=== PATIENT | female | born 1985 | race Hispanic/Latino ===

== ENCOUNTER 2017-11-04 09:40 | Outpatient (CLI) | payer OTHER | END 2017-11-04 09:41 | disposition home or self-care (01) | LOC: BICMAMMO 09:40 | PROVIDERS: ATTEND Family Medicine | DX: N64.4 Mastodynia (principal) | CPT/HCPCS: 77066; G0279 ==

== ENCOUNTER 2018-06-29 15:59 | Outpatient (CLI) | payer OTHER | END 2018-06-29 16:00 | disposition home or self-care (01) | LOC: DTY/OP 15:59 | PROVIDERS: ATTEND Family Medicine | DX: K90.0 Celiac disease (principal); R10.9 Unspecified abdominal pain; R53.83 Other fatigue | CPT/HCPCS: 97802 ==

== ENCOUNTER 2019-05-22 07:28 | Outpatient (CLI) | payer OTHER ==
--- NOTE | 2019-05-22 08:59 | MRI ---
MRI LEFT KNEE WITHOUT CONTRAST: HISTORY: S86.241X. COMPARISON: None. FINDINGS: MEDIAL MENISCUS: Intact. LATERAL MENISCUS: Intact. ACL, PCL, LCL, and MCL: All intact. EXTENSOR MECHANISM: The quadriceps tendon, patella, and patella tendon are intact. CARTILAGE: Patellofemoral compartment: 50% cartilage fissures, lateral patella facet, without subcoracoid react jabari marrow edema. Medial compartment: Intact. Lateral compartment: Intact. SOFT TISSUES: There is subtle edema of the lateral pre-femoral fat pad. There is a small popliteal cyst. There is a large multiseptated ganglion pseudocyst at the medial head gastrocnemius origin, fr om the posterior femur, measuring 2.7 cm in transverse x 2.5 cm in AP dimension x craniocaudal length of approximately 3 cm. MUSCLES: Muscle signal and bulk are normal. IMPRESSION: 1. No acute internal derangement of the knee. 2. Large ganglion pseudocyst at the origin of the medial head gastrocnemius, from the posterior femo ral metadiaphysis. 3. Trace popliteal cyst, which has collapsed. 4. Grade II chondromalacia lateral patellar facet. 5. Low grade lateral pre-femoral fat pad edema, suggesting impingement. 6. The ganglion pseudocyst of the medial head gastrocnemius can be a source of the patient's symptom atology. POS: CET
== END 2019-05-22 07:29 | disposition home or self-care (01) ==
LOC: BICMRI 07:28
PROVIDERS: ATTEND Family Medicine
DX: S86.912D Strain of unspecified muscle(s) and tendon(s) at lower leg level, left leg, subsequent encounter (principal); M67.452 Ganglion, left hip; M22.42 Chondromalacia patellae, left knee

== ENCOUNTER 2019-09-21 17:53 | Emergency (ER) | payer OTHER ==
[2019-09-21 18:33] LABS: #Eosinphils 0.1 thou/uL (0.0-0.7); #Lymphocytes 1.1 thou/uL (1.20-3.40); #Monocytes 0.9 thou/uL (0.11-0.59); #Neutrophils 6.6 thou/uL (1.40-6.50); %Basophils 0.4 % (0.0-1.0); %Eosinophils 0.7 % (0.0-10.0); %Lymphocytes 12.7 % (21.0-51.0); %Monocytes 10.7 % (0.0-10.0); %Neutrophils 75.6 % (42.0-75.0); Hemoglobin 12.4 g/dL (12.0-16.0); Mean Corpuscular HGB CONC 35.2 g/dL (32.0-36.0); Mean Corpuscular Volume 90.8 fL (78.0-98.0); Mean Platelet Volume 7.3 fL (7.4-10.4); Platelet Count 274 thou/uL (130-400); RBC Distribution Width 11.7 % (11.5-14.5); Red Blood Cell (RBC) Count 3.88 mill/uL (4.20-5.40); White Blood Cell (WBC) Count 8.7 thou/uL (4.8-10.8)
[2019-09-21 18:49] LABS: ALT (SGPT) 16 U/L (8-55); AST (SGOT) 16 U/L (5-34); Albumin 3.6 g/dL (3.5-5.0); Alkaline Phosphatase 67 U/L (40-110); Anion Gap 10 mmol/L (10-20); BUN (Urea Nitrogen) 7 mg/dL (7.0-18.7); Bilirubin, Total 0.2 mg/dL (0.2-1.2); Calc. Creatinine Clearance 0 mL/min (70-130); Carbon Dioxide 25 mmol/L (22-29); Chloride 103 mmol/L (98-107); Estimated GFR-MDRD Greater than 90; Globulin 2.8 g/dL (2.4-3.5); Glucose 90 mg/dL (70-105); Lipase 23 U/L (8-78); Potassium 3.5 mmol/L (3.5-5.1); Protein, Total 6.4 g/dL (6.0-8.3); Sodium 134 mmol/L (136-145)
--- NOTE | 2019-09-21 18:49 | ULT ---
Limited Obstetrical Ultrasound INDICATION: Abdominal and pelvic pain TECHNIQUE: Grayscale, M-mode Doppler, color Doppler and spectral Doppler images were obtained. Estrella jacinto is focused on the clinical indication. COMPARISON: No relevant prior studies available. FINDINGS: GESTATION: Number of gestations: Single. Presentation: Breech. heart rate: 157 bpm. Placental location: Posterior Previa: No evidence for previa. Cervical length: 3.6 cm STANISLAV: 8.9 cm. LIMITED SURVEY: No abnormality as visualized. BIOMETRY: Biparietal diameter: 4.83cm, 20 weeks and 6 days, 3rd percentile. Head circumference: 19.69 cm, 21 weeks 6 days, 13th percentile Abdominal circumference: 17.17 cm, 22 weeks and 1 day, 28 percentile Femoral length: 3.91cm, 22 weeks and 4 days, 39 percentile Estimated weight: 486 g +/- 72g 1 lb. 1 oz. +/- 3 ounces, 27th percentile The average gestational age by ultrasound is 21 weeks and 6 dayswith estimated due date of January 26, 2020. The estimated dates by clinical data is 22 weeks and 4 dayswith estimated due date of January 21, 2020. IMPRESSION: 1. Single live intrauterine gestation with size and dates as above. 2. STANISLAV is at 5th percentile for gestational age. Close clinical and sonographic follow-up is recommen ded.
[2019-09-21] MEDS ORDERED: Acetaminophen 325 MG TAB ONE ×2 (19:03→22:53)
[2019-09-21 19:23] LABS: Bilirubin Negative (Negative); Blood, Urine Negative (Negative); Clarity Clear (Clear); Glucose, Urine (Dipstick) Normal (Negative); Leukocyte Negative Leu/uL (Negative); Nitrite Negative (Negative); Protein, Urine (Dipstick) Negative (Neg-Trace); Urobilinogen Normal mg/dL (Less than 2)
[2019-09-21 22:14] LABS: Amnisure Internal Control QC ACCEPTABLE (ACCEPTABLE); Amnisure Test No Membranes Rupture (No Rupture)
[2019-09-24 19:08] LABS: Chlamydia by PCR Not Detected (NotDetected); GC by PCR Not Detected (NotDetected)
== END 2019-09-21 23:46 | disposition home or self-care (01) ==
LOC: ERS 17:53
DX: O99.512 Diseases of the respiratory system complicating pregnancy, second trimester (principal); J10.1 Influenza due to other identified influenza virus with other respiratory manifestations; O99.342 Other mental disorders complicating pregnancy, second trimester; F32.9 Major depressive disorder, single episode, unspecified; O99.332 Smoking (tobacco) complicating pregnancy, second trimester; F17.200 Nicotine dependence, unspecified, uncomplicated; Z3A.22 22 weeks gestation of pregnancy
CPT/HCPCS: 36415; 76815; 80053; 81003; 83690; 84112; 85025; 87480; 87491; 87510; 87591; 87660; 87804

== ENCOUNTER 2020-01-10 19:15 | Inpatient (IN) | payer OTHER ==
[2020-01-14 18:17] VITALS: BMI 34.7
[2020-01-14] MEDS ORDERED: NS / Oxytocin 40 units/1000ml 1,000 ML IV PRN (18:37)
[2020-01-14] MEDS ORDERED: Lidocaine 1% (PF) 30 ML VIAL SC PRN (18:37)
[2020-01-14] MEDS ORDERED: Acetaminophen 500 MG TAB PO PRN (18:37)
[2020-01-14] MEDS ORDERED: Promethazine HCl 25 MG/ML VIAL IM PRN ×2 (18:37→22:34)
[2020-01-14] MEDS ORDERED: Ondansetron PF 4 MG/2 ML Vial IVP PRN ×2 (18:37→22:34)
[2020-01-14] MEDS ORDERED: hydrALAZINE 20 MG/ML VIAL SLOW IVP PRN (18:37)
--- NOTE | 2020-01-14 18:37 | PDOC.FPROB ---
FMR OB H&P: HPI - History of Present Illness Chief Complaint: IOL Indentification: History of Present Illness: Pt is a 34 yo @ 39 weeks dated on LMP c/w 13.1 week sono who presents to for eIOL. This is complicated by A2GDM controlled with basal insulin and meal time insulin. She does not know dosage at this time but has records at home. She denies chest pain, sob, vision changes, FERRER, RUQ pain, contractions, LE edema, vaginal bleeding, ROM, abdominal pain. She has no complaints. SHARIF - Chris/Neye FMR OB H&P: Current - Care : 4 Para: 210 Gestational age: 39 weeks Due date: 01/21/20 Dating Criteria: LMP c/w 13.1 week sono Course/Complications: A2GDM controlled with insulin - OB Labs Blood type: AB RH: positive Antibody Screen: negative HIV: negative RPR: negative HepBsAg: negative Rubella: immune Gonorrhea: negative Chlamydia: negative GBS: negative FMR OB H&P: History - Past Medical History PMH: A2GDM Celiac Disease Anxiety/Depression - OB History OB History: A2GDM - ACTIVITY SPECIALIST History ACTIVITY SPECIALIST History: Neg GCCH - Surgical History Sx History: None - Social History Social History: Denies tobacco, alcohol, drug use - Family History Family History: Non-contributory FMR OB H&P: Medications - Current Home Medications: Medication Instructions Recorded Confirmed Type Vit,Calc76/Iron/Folic 1 tablet PO DAILY 01/14/20 01/14/20 History [Prenatabs Rx Tablet] Allergies/Adverse Reactions: Allergies Allergy/AdvReac Type Severity Reaction Status Date / Time almond Allergy Verified 01/14/20 18:13 amoxicillin Allergy Verified 01/14/20 18:09 clarithromycin Allergy Verified 01/14/20 18:10 corn Allergy Verified 01/14/20 18:13 levofloxacin Allergy Verified 01/14/20 18:10 peanut Allergy Verified 01/14/20 18:13 pecan nut Allergy Verified 01/14/20 18:13 pistachio nut Allergy Verified 01/14/20 18:13 soy Allergy Verified 01/14/20 18:14 FMR OB H&P: ROS - Review of Systems General: denies: fever/chills, weight/appetite/sleep changes Eyes: denies: eye pain, vision changes, scotomas, floaters ENT: denies: nasal congestion, rhinorrhea, sore throat Cardiovascular: denies: chest pain, palpitation, edema Respiratory: denies: cough, congestion Gastrointestinal: denies: abdominal pain, indigestion, bloating, nausea, vomiting, diarrhea, constipation Genitourinary (Female): denies: incontinence, dysuria Musculoskeletal: denies: pain, stiffness Neurologic: denies: numbness, syncope, weakness Integumentary: denies: itching, rash Endocrine: denies: cold intolerance, heat intolerance Hematologic/Lymphatic: denies: prolonged or excessive bleeding Psychological: denies: depression, anxiety FMR OB H&P: Vital Signs - Heart Tones Baseline: 150 Variability: moderate Acceleration: present Deceleration: absent [place] contractions every: No contractions on monitor FMR OB H&P: Physical Exam - Physical Exam General: NAD, awake, alert and oriented HEENT: PERRLA, EOMI Neck: FROM, trachea midline, no JVD Heart: RRR, normal S1/S2, no murmurs/rubs/gallops, no edema General: CTAB, no respiratory distress, good air movement, no wheezing Abdomen: soft, gravid, non-tender, bowel sound present Musculoskeletal: normal gait and station, FROM in all four extremities Neurological: cranial nerves II through XII intact, sensation to pain,touch and proprioception grossly normal Skin: no rash, capillary refill <2 seconds, no jaundice Lymphatic: no purpura, no petechia Psychiatric: intact recent and remote memory, good judgement and insight - Pelvic Exam Vulva: no masses, no lesions, no discharge SVE: 2 cm/30%/-1 Olivia score: 7, anterior, soft Membranes: Intact Presentation: Cephalic FMR OB H&P: A/P - Problem List (1) Elective induction of labor planned Current Visit: Yes Status: Acute Code(s): [id number] - (2) GDM, class A2 Current Visit: Yes Status: Acute Code(s): O24.419 - GESTATIONAL DIABETES MELLITUS IN , UNSP CONTROL Disposition: Pt is a 34 yo at 39 weeks dated by LMP c/w 13.1 week u/s who presents for eIOL. # Elective IOL Olivia 7 SVE: 2 cm, 30%, -1, anterior, soft; Cephalic position FHT's: 150, moderate variability, accels present, no decels - start pit - recheck at midnight on first check - check strip q2hrs # A2GDM Home medications: Humalog 6 U am, 4 U evening; Humulin 23 U am, 6 U evening. Home ranges from 58-158 w/ median low 100's. She feels lightheaded when high and low. BG 95 initial. - q1h checks - maintain BG between 70-110 - SSI initiated, contact physician above 140 and will need to consider insulin pump # GBS Negative TAMP - Chris/Kenny Discussion: Date/Time: 01/14/201836 This H&P was discussed with Dr. Bojorquez and Dr. Moe who agree with the above documentation and plan. Addendum - Attending - Attending Attestation Date/Time: 01/14/202029 I personally evaluated the patient and discussed the management with Dr. Dougherty I agree with the History, Examination, Assessment and Plan documented above with any addition or exceptions noted below. 34 yo at 39.0 wk. IOL for GDM A2 well controlled. initial glucose 90-> 70 without insulin. will give PO juice. q1hr accuchecks with SSI. Will switch to insulin ggt if necessary. pitocin for IOL since olivia score 7 with modified olivia of 10. reassess in 4 hr. GBS negative.
[2020-01-14] MEDS ORDERED: NS w/ Oxytocin 10 units 500 ML IV SCH (18:45)
[2020-01-14 18:49] LABS: Hemoglobin 12.3 g/dL (12.0-16.0); Mean Corpuscular HGB CONC 34.3 g/dL (32.0-36.0); Mean Corpuscular Volume 84.4 fL (78.0-98.0); Mean Platelet Volume 7.7 fL (7.4-10.4); Platelet Count 344 thou/uL (130-400); RBC Distribution Width 12.2 % (11.5-14.5); Red Blood Cell (RBC) Count 4.25 mill/uL (4.20-5.40); White Blood Cell (WBC) Count 9.6 thou/uL (4.8-10.8)
[2020-01-14 19:03] LABS: ALT (SGPT) 16 U/L (8-55); AST (SGOT) 21 U/L (5-34); Albumin 3.5 g/dL (3.5-5.0); Alkaline Phosphatase 318 U/L (40-110); Anion Gap 14 mmol/L (10-20); BUN (Urea Nitrogen) 15 mg/dL (7.0-18.7); Bilirubin, Total 0.4 mg/dL (0.2-1.2); Calc. Creatinine Clearance 103 mL/min (70-130); Calcium 9.1 mg/dL (7.8-10.44); Carbon Dioxide 20 mmol/L (22-29); Chloride 105 mmol/L (98-107); Estimated GFR-MDRD 65; Globulin 3.3 g/dL (2.4-3.5); Glucose 95 mg/dL (70-105); Potassium 4.1 mmol/L (3.5-5.1); Protein, Total 6.8 g/dL (6.0-8.3); Sodium 135 mmol/L (136-145)
[2020-01-14] MEDS: Lactated Ringer's 1,000 ML IV SCH ×2 (19:05→21:27)
[2020-01-14 19:21] LABS: Syphilis Antibody Nonreactive (Nonreactive); Syphilis Antibody Index 0.03 S/CO (<1.00 Non-Reactive)
[2020-01-14 19:22] LABS: Hep B Surf Ag Non-Reactive S/CO (NonReactive)
[2020-01-14] MEDS ORDERED: Dextrose 50% Abboject 50 ML SYRINGE SLOW IVP PRN (19:43)
[2020-01-14] MEDS ORDERED: Dextrose 5% in Water 1,000 ML IV PRN (19:43)
[2020-01-14] MEDS ORDERED: HumaLOG 300 UNITS/3 ML VIAL SC PRN (19:43)
--- NOTE | 2020-01-14 21:09 | PDOC.LDPN ---
Labor & Delivery Progress Note - Subjective Subjective: comfortable, no concerns - Objective Vital signs reviewed and normal: yes General: NAD, resting FHT: category 2, late decelerations - Assessment (1) Elective induction of labor planned Code(s): [id number] - Current Visit: Yes Status: Acute (2) GDM, class A2 Code(s): O24.419 - GESTATIONAL DIABETES MELLITUS IN , UNSP CONTROL Current Visit: Yes Status: Acute Plan: other -: Pt is a 34 yo at 39 weeks dated by LMP c/w 13.1 week u/s who presents for eIOL. # Elective IOL Late decels. Will watch for continued late decels. Discussed with pt possible need for . 2/2 uteroplacental insufficiency. Concerning bc pt is not feeling contractions and baby is already compromised. Little response to fluid, position changes. BG wnl. # A2GDM Continue q1h checks # GBS Negative TAMP - Perez/Klocke
[2020-01-14] MEDS ORDERED: Ondansetron PF 4 MG/2 ML Vial ONE (22:17)
[2020-01-14] MEDS ORDERED: EPHEDRINE 25 MG/5 ML SYRINGE ONE (22:17)
[2020-01-14] MEDS ORDERED: MORPHINE 5 MG/10 ML PF VIAL ONE (22:17)
[2020-01-14] MEDS ORDERED: Oxytocin 10 UNITS/ML VIAL ONE (22:17)
--- NOTE | 2020-01-14 22:26 | PDOC.EVN ---
Event Note - Event Note Event Note: Infant having recurrent lates with contractions without any inductive measures. R/B/A of primary LTCS discussed with the patient and her . All questions answered. plan to proceed with primary LTCS.
[2020-01-14] MEDS ORDERED: CEFAZOLIN 2 GM in Premix Bag 1 BAG IVPB SCH (22:30)
[2020-01-14] MEDS ORDERED: Bicitra 30 ML UDCUP PO SCH (22:30)
[2020-01-14] MEDS ORDERED: Promethazine HCl 25 MG SUPP PR PRN (22:34)
[2020-01-14] MEDS ORDERED: L&D-Morphine 4 MG/ML VIAL SLOW IVP PRN (22:34)
[2020-01-14] MEDS ORDERED: Naloxone HCl 0.4 mg/ml Vial IVP PRN ×2 (22:34)
[2020-01-14] MEDS ORDERED: Ondansetron HCl/PF 4 MG/2 ML Vial IVP PRN (22:34)
[2020-01-14] MEDS ORDERED: HYDROmorphone 2 MG/ML VIAL SLOW IVP PRN (22:34)
[2020-01-14] MEDS ORDERED: Naloxone HCl 0.4 mg/ml Vial IV PRN (22:34)
[2020-01-14] MEDS ORDERED: diphenhydrAMINE 50 MG/ML VIAL IVP PRN (22:34)
[2020-01-14] MEDS ORDERED: Meperidine HCl/PF 25 MG/ML VIAL SLOW IVP PRN (22:34)
[2020-01-14] MEDS ORDERED: Ketorolac Tromethamine 30 MG/ML VIAL IVP PRN (22:34)
[2020-01-14] MEDS ORDERED: Communication Order-Pharmacy FS SCH (22:45)
[2020-01-14] MEDS ORDERED: Ketorolac Tromethamine 30 MG/ML VIAL IVP SCH (22:45)
[2020-01-14] MEDS ORDERED: Fentanyl 100 MCG/2 ML VIAL ONE ×2 (23:11→23:55)
[2020-01-14] MEDS ORDERED: PHENYLEPHRINE-NS 100 MCG/ML 10 ML SYRINGE ONE (23:15)
[2020-01-14 23:16] LABS: Actual Bicarbonate (HCO3a) 22.9 mEq/L (22-28); Base Excess (BEa) -3.4 mEq/L (-2.0 to +3.0)
[2020-01-14] MEDS ORDERED: Ketorolac Tromethamine 30 MG/ML VIAL ONE (23:27)
[2020-01-14] MEDS ORDERED: Midazolam HCl 2 mg/2 ml Vial ONE (23:33)
[2020-01-15] MEDS ORDERED: Glycopyrrolate 0.2 MG/ML 5 ML SYRINGE ONE (00:01)
[2020-01-15] MEDS: Misoprostol 100 MCG TAB VAG SCH (00:49)
--- NOTE | 2020-01-15 01:41 | OP ---
DATE OF PROCEDURE: 01/14/2020 RESIDENT SURGEON: Shannan Perez MD SPACE AND STORAGE CLERK SURGEON: José Dougherty DO ATTENDING SURGEON: Zev Bojorquez MD PROCEDURE PERFORMED: Primary low-transverse section. PREOPERATIVE DIAGNOSES: 1. Term intrauterine . 2. A2 gestational diabetes, controlled. 3. Obesity. 4. History of delivery. 5. Advanced maternal age. POSTOPERATIVE DIAGNOSES: 1. Term intrauterine , delivered. 2. A2 gestational diabetes, controlled. 3. Obesity. 4. History of delivery. 5. Advanced maternal age. ANESTHESIA: Spinal. INDICATIONS: The patient is a 34-year-old, G4, P2-1-0-3 female at 39 weeks' gestation, who presented for a scheduled induction, medically indicated for A2 gestational diabetes, controlled on insulin. Upon arrival to Labor and Delivery , the patient was noted to have recurrent late decelerations with intermittent minimal variability. She was given a liter of bolus and repositioned, which improved the heart tracing temporarily, but again the patient had several recurrent late decelerations before any labor augmentation was initiated and the decision was made to undergo primary section for nonreassuring heart tones. PROCEDURE IN DETAIL: After risks, benefits, and alternatives were explained to the patient, she gave informed consent. Preoperative antibiotics included cefazolin 2 g IV. The patient was taken to the operating room and spinal anesthesia was initiated. She was placed in the supine position with a left tilt and prepped and draped in usual sterile fashion. A Pfannenstiel incision was made with a scalpel and carried down to the level of the fascia, which was sharply nicked. Fascial cut was extended bilaterally both bluntly and with Yang scissors. Inferior and superior edges of the cut vaginal edges were elevated with Cinthya clamps. The underlying rectus muscles were bluntly dissected free. The recti were divided digitally and retracted manually. The peritoneum was entered bluntly and retracted manually. An Tripp O was then placed for better visualization of the uterus. A bladder blade was placed and a bladder flap was created with Metzenbaum scissors. A low transverse score was made with a scalpel and the uterus was entered in the midline with a scalpel. Clear fluid was seen. The hysterotomy was extended manually. The was noted to be vertex and was easily delivered by fundal pressure. Mouth and nares were bulb suctioned. Cord was clamped and cut and a grossly normal female was handed to waiting nurse. Cord blood and a cord section were obtained and sent for blood typing and blood gas analysis. Placenta was delivered with uterine massage and found to be intact with three-vessel cord and discarded. The uterus was internalized and the endometrium was curetted with a dry lap x3. The bladder blade was replaced and the uterus was closed with a running locking 1-0 Monocryl suture followed by running nonlocking #1 Monocryl imbricating suture. Following this, hemostasis was noted. The abdomen was irrigated with saline and suctioned free of clots. The uterus was internalized and the hysterotomy was again noted to be hemostatic. The peritoneum was closed with a running nonlocking 2-0 Monocryl suture. The fascia was closed with a running nonlocking 0 PDS suture. The subcutaneous tissue was irrigated and there were no free bleeders and it was closed using a running nonlocking 2-0 plain gut suture. The skin was approximated with a 4-0 Monocryl subcuticular stitch and Dermabond. A pressure dressing was then placed. All counts were correct x3. The patient tolerated the procedure well, and was taken to the recovery room in stable condition. ESTIMATED BLOOD LOSS: 500mL COMPLICATIONS: None. SPECIMENS: Cord blood and cord segment sent to lab for blood type and cord gas analysis. FINDINGS: 1. Grossly normal female with Apgars of 9 and 9. 2. Grossly normal placenta with three-vessel cord discarded. DRAINS: [place] to gravity draining clear urine. ATTENDING ADDENDUM: I was present for the entire case and agree with the above documentation. Job ID: [id number] MTDD
[2020-01-15] MEDS ORDERED: Lanolin Ointment 7 GM TUBE TOP PRN (01:54)
[2020-01-15] MEDS ORDERED: Ondansetron PF 4 MG/2 ML Vial IVP PRN (01:54)
[2020-01-15] MEDS ORDERED: hydrALAZINE 20 MG/ML VIAL SLOW IVP PRN (01:54)
[2020-01-15 05:00] LABS: Hemoglobin 11.2 g/dL (12.0-16.0); Mean Corpuscular HGB CONC 34.4 g/dL (32.0-36.0); Mean Corpuscular Hemoglobin 29.3 pg (27.0-31.0); Mean Corpuscular Volume 85.1 fL (78.0-98.0); Mean Platelet Volume 7.3 fL (7.4-10.4); Platelet Count 306 thou/uL (130-400); RBC Distribution Width 12.2 % (11.5-14.5); Red Blood Cell (RBC) Count 3.83 mill/uL (4.20-5.40); White Blood Cell (WBC) Count 13.5 thou/uL (4.8-10.8)
--- NOTE | 2020-01-15 06:59 | PDOC.OBPPN ---
FMR OB PN: Subj - Interval History Hospital Day: 2 Day: 1 Chief Complaint: Pain Indentification: G4 now P3104 who is PP day #1 s/p primary LTCS for NRFHTs. Interval History: Patient has been stable since moving to floor w/ minimal bleeding. FMR OB PN: Obj - Maternal Vital signs: BP: 99/50 HR: 56 RR: 16 Tmax: 98.7F Pox: 98% on RA Wt: 80 kg - Urine output I&O: 01/13/20 01/14/20 01/15/20 06:59 06:59 06:59 Intake Total 851 Output Total 625 Balance 226 - Pain Management Intervention: oral medication FMR OB PN: Exam - Physical Exam General: NAD (firm just below umbilicus), awake, alert and oriented HEENT: normocephalic and atraumatic, conjunctiva clear, grossly normal vision, grossly normal hearing, good dention Neck: supple, FROM Heart: RRR, normal S1/S2, no murmurs/rubs/gallops, no edema General: CTAB, no respiratory distress, good air movement, no rales/rhonchi, no wheezing, no retractions Abdomen: soft, fundus(cm) (firm just below umbilicus), bowel sound present Musculoskeletal: FROM in all four extremities Neurological: cranial nerves II through XII intact, sensation to pain,touch and proprioception grossly normal, no focal deficit Skin: no rash : bandage intact, no erythema, no edema, no drainage, appropriately tender Psychiatric: intact recent and remote memory, good judgement and insight, normal mood and affect - Pelvic Exam : sutures intact, no discharge, no edema, normal lochia FMR OB PN: Data - Labs Lab results: Laboratory Results - last 24 hr 01/14/20 01/14/20 01/14/20 18:35 18:35 18:35 WBC RBC Hgb Hct MCV MCH MCHC RDW Plt Count MPV Bicarbonate Actual ABG Base Excess Cord ABG pH Cord ABG PCO2 ([place]) Sodium Potassium Chloride Carbon Dioxide Anion Gap BUN Creatinine Estimated GFR (MDRD) Glucose POC Glucose Calcium Total Bilirubin AST ALT Alkaline Phosphatase Serum Total Protein Albumin Globulin Albumin/Globulin Ratio Syphilis IgG/IgM Ab Nonreactive Hep Bs Antigen Non-Reactive Blood Type AB POSITIVE Antibody Screen NEGATIVE 01/14/20 01/14/20 01/14/20 18:35 18:35 19:43 WBC 9.6 RBC 4.25 Hgb 12.3 Hct 35.9 L MCV 84.4 MCH 29.0 MCHC 34.3 RDW 12.2 Plt Count 344 MPV 7.7 Bicarbonate Actual ABG Base Excess Cord ABG pH Cord ABG PCO2 ([place]) Sodium 135 L Potassium 4.1 Chloride 105 Carbon Dioxide 20 L Anion Gap 14 BUN 15 Creatinine 0.97 Estimated GFR (MDRD) 65 Glucose 95 POC Glucose 77 Calcium 9.1 Total Bilirubin 0.4 AST 21 ALT 16 Alkaline Phosphatase 318 H Serum Total Protein 6.8 Albumin 3.5 Globulin 3.3 Albumin/Globulin Ratio 1.1 L Syphilis IgG/IgM Ab Hep Bs Antigen Blood Type Antibody Screen 01/14/20 01/14/20 01/15/20 20:56 23:12 00:32 WBC RBC Hgb Hct MCV MCH MCHC RDW Plt Count MPV Bicarbonate Actual 22.9 ABG Base Excess -3.4 L Cord ABG pH 7.320 Cord ABG PCO2 (Clarence) 45.5 Sodium Potassium Chloride Carbon Dioxide Anion Gap BUN Creatinine Estimated GFR (MDRD) Glucose POC Glucose 90 88 Calcium Total Bilirubin AST ALT Alkaline Phosphatase Serum Total Protein Albumin Globulin Albumin/Globulin Ratio Syphilis IgG/IgM Ab Hep Bs Antigen Blood Type Antibody Screen 01/15/20 01/15/20 01/15/20 00:50 04:50 05:02 WBC 13.5 H RBC 3.83 L Hgb 11.2 L Hct 32.6 L MCV 85.1 MCH 29.3 MCHC 34.4 RDW 12.2 Plt Count 306 MPV 7.3 L Bicarbonate Actual ABG Base Excess Cord ABG pH Cord ABG PCO2 ([place]) Sodium Potassium Chloride Carbon Dioxide Anion Gap BUN Creatinine Estimated GFR (MDRD) Glucose POC Glucose 104 Calcium Total Bilirubin AST ALT Alkaline Phosphatase Serum Total Protein Albumin Globulin Albumin/Globulin Ratio Syphilis IgG/IgM Ab Hep Bs Antigen Blood Type AB POSITIVE Antibody Screen FMR OB PN: A/P - Problem List (1) Status post delivery Current Visit: Yes Status: Acute Code(s): Z98.891 - HISTORY OF UTERINE SCAR FROM PREVIOUS SURGERY (2) History of delivery Current Visit: Yes Status: Chronic Code(s): Z87.51 - PERSONAL HISTORY OF PRE -TERM LABOR (3) Advanced maternal age in multigravida Current Visit: Yes Status: Chronic Code(s): O09.529 - SUPERVISION OF ELDERLY MULTIGRAVIDA, UNSPECIFIED TRIMESTER (4) GDM, class A2 Current Visit: Yes Status: Acute Code(s): O24.419 - GESTATIONAL DIABETES MELLITUS IN , UNSP CONTROL Disposition: 34YO who is PP day #1 s/p primary LTCS @ 39 WGA for NRFHTs. # PP day #1 s/p primary LTCS: - VS stable. Tolerating PO. Sharpe still in place so not voiding or ambulating yet. Passing gas. Pain decently controlled. No fever/chills, N/V, chest pain or abdominal pain. Continue routine post-C/S care. - Reports minimal bleeding w/ QBL of 525mL since delivery, cEBL fairly c/w this at ~514mL. # A2GDM - BG ranging from 77-104 since admission. Will d/c accuchecks. Will need testing for DMII at 6 week PP visit. #AMA in multigravida - Patient aware future pregnancies will all be considered high risk. Will discuss preferred contraception method prior to d/c. #h/o delivery in prior # GBS Negative Dispo: Will monitor over the course of the day w/ anticipated d/c in 1-2 days pending patient & infant's clinical course. PCP: SHARIF Perez/Kenny Discussion: Date/Time: 01/15/20 1320 This H&P was discussed with Dr. Rush who agrees with the above documentation and plan. Addendum - Attending - Attending Attestation Date/Time: 01/15/20 4155 I personally evaluated the patient and discussed the management with Dr. Perez I agree with the History, Examination, Assessment and Plan documented above with any addition or exceptions noted below - Patient denies complaints. Pain well controlled. Afebrile VSS. A/P: 1) PPD#1 s/p 1*C/S- continue routine care. Advance diet as tolerated and d/c sharpe. Begin ambulation later today.
[2020-01-15] MEDS ORDERED: Adacel (T-DAP) 0.5 ML SYRINGE IM ONE (09:00)
[2020-01-15] MEDS: Ferrous Sulfate 325 MG TAB PO SCH ×2 (09:12→21:37)
[2020-01-15] MEDS: Docusate Calcium (SURFAK) 240 MG CAP PO SCH ×2 (09:13→21:32)
[2020-01-15] MEDS: HYDROcodone/Acetaminophen 5/325 mg Tablet PO PRN (17:12)
[2020-01-15] MEDS: Ibuprofen 800 MG TAB PO SCH (21:32)
[2020-01-15] MEDS ORDERED: HumaLOG 300 UNITS/3 ML VIAL SC PRN (22:37)
[2020-01-15] MEDS ORDERED: Dextrose 5% in Water 1,000 ML IV PRN (22:37)
[2020-01-15] MEDS ORDERED: Dextrose 50% Abboject 50 ML SYRINGE SLOW IVP PRN (22:37)
[2020-01-16] MEDS: Ibuprofen 800 MG TAB PO SCH ×3 (05:20→21:58)
[2020-01-16] MEDS ORDERED: Ibuprofen 800 MG TAB PO SCH (06:00)
--- NOTE | 2020-01-16 06:51 | PDOC.OBPPN ---
FMR OB PN: Subj - Interval History Hospital Day: 3 Day: 2 Indentification: who is PP day #2 s/p primary LTCS @ 39 WGA. Interval History: Patient doing well but did have some hyperglycemia overnight. FMR OB PN: Obj - Maternal Vital signs: BP: 90/51 HR: 64 RR: 17 Tmax: 97.9F Pox: 98% on RA Wt: 80.7 kg - Urine output I&O: 01/14/20 01/15/20 01/16/20 06:59 06:59 06:59 Intake Total 851 Output Total 625 Balance 226 - Lochia Lochia: minimal - Pain Management Intervention: oral medication FMR OB PN: Exam - Physical Exam General: NAD, awake, alert and oriented HEENT: normocephalic and atraumatic, conjunctiva clear, grossly normal vision, grossly normal hearing Neck: supple, FROM Heart: RRR, normal S1/S2, no murmurs/rubs/gallops, no edema General: CTAB, no respiratory distress, good air movement, no rales/rhonchi, no wheezing, no retractions Abdomen: soft, fundus(cm) (firm just below umbilicus), bowel sound present Musculoskeletal: normal gait and station, FROM in all four extremities Neurological: cranial nerves II through XII intact, sensation to pain,touch and proprioception grossly normal, no tremor Skin: no rash, good tugor : bandage intact, no erythema, no edema, no drainage, appropriately tender Psychiatric: intact recent and remote memory, good judgement and insight, normal mood and affect - Pelvic Exam : sutures intact, no discharge, normal lochia FMR OB PN: Data - Labs Lab results: Laboratory Results - last 24 hr 01/15/20 01/15/20 01/15/20 10:54 18:12 21:39 POC Glucose 89 111 H 210 H 01/15/20 01/16/20 23:10 05:31 POC Glucose 118 H 100 FMR OB PN: A/P - Problem List (1) Status post delivery Current Visit: Yes Status: Acute Code(s): Z98.891 - HISTORY OF UTERINE SCAR FROM PREVIOUS SURGERY (2) History of delivery Current Visit: Yes Status: Chronic Code(s): Z87.51 - PERSONAL HISTORY OF PRE -TERM LABOR (3) Advanced maternal age in multigravida Current Visit: Yes Status: Chronic Code(s): O09.529 - SUPERVISION OF ELDERLY MULTIGRAVIDA, UNSPECIFIED TRIMESTER (4) GDM, class A2 Current Visit: Yes Status: Acute Code(s): O24.419 - GESTATIONAL DIABETES MELLITUS IN , UNSP CONTROL Disposition: 34YO who is PP day #2 s/p primary LTCS @ 39 WGA for NRFHTs. #PP day #2 s/p primary LTCS: - VS remain WNLs. Tolerating PO. Voiding and ambulating yet. Passing gas. Pain decently controlled with PO meds. Continue routine post-C/S care. - Minimal bleeding w/ QBL of 525mL since delivery, cEBL fairly c/w this at ~ 514mL. #A2GDM - BG ranging from 77-210 since admission. Will continue ACHS accuchecks & mild SSI today. Will need testing for DMII at 6 week PP visit. #AMA in multigravida - Patient aware future pregnancies will all be considered high risk. Will discuss preferred contraception method prior to d/c. #h/o delivery in prior #GBS Negative Dispo: Will monitor over the course of the day w/ anticipated d/c in ~1 day pending patient & 's clinical course. PCP: SHARIF Perez/Kenny Discussion: Date/Time: 01/16/20 0649 This H&P was discussed with [] and [] who agree with the above documentation and plan. Addendum - Attending - Attending Attestation Date/Time: 01/16/20 0918 I personally evaluated the patient and discussed the management with Dr. Perez I agree with the History, Examination, Assessment and Plan documented above with any addition or exceptions noted below- Patient denies any complaints. Pain controlled with medications. Afebrile VSS. A/P: 1) POD#2 s/p 1*C/S - continue routine care. H/H stable.
[2020-01-16] MEDS: Prenatal Vitamin 1 TAB PO SCH (09:02)
[2020-01-16] MEDS: HYDROcodone/Acetaminophen 5/325 mg Tablet PO PRN ×3 (09:02→20:24)
[2020-01-16] MEDS: Docusate Calcium (SURFAK) 240 MG CAP PO SCH ×2 (09:02→21:58)
--- NOTE | 2020-01-16 09:46 | PDOC.OBPPN ---
FMR OB PN: Subj - Interval History Hospital Day: 2 Day: 2 Chief Complaint: PP Day 2 s/p pLTCS for NRFHTs Indentification: > @ 39W EGA Interval History: 1 episode of asymptomatic hyperglycemia (210) recorded last night FMR OB PN: Obj - Maternal Vital signs: BP: [96/52] HR: [57] RR: [20] Tmax: [97.7] Pox: [98]% on [Room Air] Wt: [] - Urine output I&O: 01/15/20 01/16/20 01/17/20 06:59 06:59 06:59 Intake Total 851 Output Total 625 Balance 226 - Lochia Lochia: WNL - Pain Management Pain scale: 3 (Minimal) Intervention: oral medication FMR OB PN: Exam - Physical Exam General: NAD, awake, alert and oriented HEENT: normocephalic and atraumatic, PERRLA, EOMI, MMM, conjunctiva clear, no scleral icterus, grossly normal vision, grossly normal hearing, normal nasal mucosa, oropharynx clear, good dention Neck: supple, FROM, trachea midline, no LAD Chest: non-tender to palpation, no lesions Breast: symmetric Heart: RRR, normal S1/S2, no murmurs/rubs/gallops, pulses present, no edema General: CTAB, no respiratory distress, good air movement, no rales/rhonchi, no wheezing, no retractions Abdomen: soft, fundus(cm) (Below the level of the umbilicus), bowel sound present, other (Appropriately tender) Musculoskeletal: pulses present, FROM in all four extremities, no misalignment/ asymmetry, no atrophy Skin: no rash, no jaundice : bandage intact, incision healing well, no erythema, no edema, no drainage, appropriately tender Lymphatic: no unusual bruising or bleeding, no purpura, no petechia, no LAD Psychiatric: intact recent and remote memory, good judgement and insight, normal mood and affect - Pelvic Exam : normal lochia FMR OB PN: Data - Labs Lab results: Laboratory Results - last 24 hr 01/15/20 01/15/20 01/15/20 10:54 18:12 21:39 POC Glucose 89 111 H 210 H 01/15/20 01/16/20 23:10 05:31 POC Glucose 118 H 100 FMR OB PN: A/P - Problem List (1) GDM, class A2 Current Visit: Yes Status: Acute Code(s): O24.419 - GESTATIONAL DIABETES MELLITUS IN , UNSP CONTROL (2) Status post delivery Current Visit: Yes Status: Acute Code(s): Z98.891 - HISTORY OF UTERINE SCAR FROM PREVIOUS SURGERY (3) Advanced maternal age in multigravida Current Visit: Yes Status: Chronic Code(s): O09.529 - SUPERVISION OF ELDERLY MULTIGRAVIDA, UNSPECIFIED TRIMESTER Disposition: Patient is a 34 y/o who is PP day #2 s/p pLTCS @ 39W EGA for NRFHTs. 1. SIUP, s/p primary LTCS -Patient appears well at this time and has no significant complaints - tolerating PO and passing gas appropriately -VSS - no severe-range BP measurements -Voiding and ambulating well - pain decently controlled with PO meds. -Minimal bleeding w/ QBL of 525mL since delivery, cEBL fairly c/w this at ~ 514mL. #A2GDM -BG WNL with 1 episode of asymptomatic hyperglycemia (210) on 01/15/20 -Will continue ACHS accuchecks & mild SSI if indicated -Plan for repeating DM testing at 6W Appointment #AMA in Multigrav[place] -Patient aware future pregnancies will all be considered high risk -Will discuss preferred contraception method prior to DC PCP: SHARIF - Chris/Kenny Dispo: Will monitor over the course of the day w/ anticipated DC in 24H, pending Patient & Infant's clinical course. Expected LOS < 36H. Discussion: Date/Time: 01/16/20 0969 This H&P was discussed with [] and [] who agree with the above documentation and plan. Addendum - Attending - Attending Attestation Date/Time: 01/17/20 1034 I personally evaluated the patient and discussed the management with Dr. Schilling on 01/16/2020 I agree with the History, Examination, Assessment and Plan documented above with any addition or exceptions noted below- Patient without complaints. Afebrile VSS. A/P: 1) POD#2 s/p 1*C/S - continue routine care.
[2020-01-17] MEDS: Ibuprofen 800 MG TAB PO SCH (05:25)
--- NOTE | 2020-01-17 07:40 | PDOC.OBPPN ---
FMR OB PN: Subj - Interval History Hospital Day: 4 Day: 3 Chief Complaint: none Indentification: who is PP day #3 s/p primary LTCS for NRFHTs Interval History: VS remain stable w/ only 1 mildly eleveated BG level yesterday. FMR OB PN: Obj - Maternal Vital signs: BP: 93/84 HR: 63 RR: 20 Tmax: 98.4 Pox: 98% on RA Wt: 80.739 kg - Lochia Lochia: trace, normal lochia noted - Pain Management Pain scale: 0 Intervention: oral medication FMR OB PN: Exam - Physical Exam General: NAD, awake, alert and oriented HEENT: normocephalic and atraumatic, MMM, conjunctiva clear, grossly normal vision, grossly normal hearing Neck: supple, FROM Heart: RRR, normal S1/S2, no murmurs/rubs/gallops General: CTAB, no respiratory distress Abdomen: soft, bowel sound present, other (appropriately tender) Musculoskeletal: normal gait and station, FROM in all four extremities Neurological: cranial nerves II through XII intact, sensation to pain,touch and proprioception grossly normal, no tremor Skin: good tugor : bandage intact, incision healing well, no erythema, no edema, no drainage, appropriately tender Psychiatric: intact recent and remote memory, good judgement and insight, normal mood and affect - Pelvic Exam : no discharge, no edema, normal lochia FMR OB PN: Data - Labs Lab results: Laboratory Results - last 24 hr 01/16/20 01/16/20 01/16/20 11:55 18:38 21:05 POC Glucose 85 148 H 109 01/17/20 06:10 POC Glucose 90 FMR OB PN: A/P - Problem List (1) Status post delivery Status: Acute Code(s): Z98.891 - HISTORY OF UTERINE SCAR FROM PREVIOUS SURGERY (2) History of delivery Status: Chronic Code(s): Z87.51 - PERSONAL HISTORY OF PRE-TERM LABOR (3) Advanced maternal age in multigravida Status: Chronic Code(s): O09.529 - SUPERVISION OF ELDERLY MULTIGRAVIDA, UNSPECIFIED TRIMESTER (4) GDM, class A2 Status: Acute Code(s): O24.419 - GESTATIONAL DIABETES MELLITUS IN , UNSP CONTROL Disposition: Patient is a 34 y/o who is PP day #3 s/p pLTCS @ 39W EGA for NRFHTs. #PP day #3 s/p term delivery via primary LTCS for NRFHTs -Patient appears well. Tolerating PO, passing gas & voiding & ambulating normally. Breast feeding which is going well. -Minimal bleeding w/ QBL of 525mL since delivery, cEBL fairly c/w this at ~ 514mL. #A2GDM -2 episodes of asymptomatic hyperglycemia 210 (4/) & 148 (4) since delivery. -Plan for repeating DM testing at 6W Appointment. #AMA in Multigrav[place] -Patient aware future pregnancies will all be considered high risk. -Desires nexplanon for contraception. PCP: SHARIF - Chris/Kenny Dispo: Will d/c home today w/ f/u in 2 weeks for PP visit. Discussion: Date/Time: 01/17/20 0796 This H&P was discussed with Dr. Rush who agree with the above documentation and plan. Addendum - Attending - Attending Attestation Date/Time: 01/17/20 7962 I personally evaluated the patient and discussed the management with Dr. Perez I agree with the History, Examination, Assessment and Plan documented above with any addition or exceptions noted below - Patient without complaints. Afebrile VSS. Pain well controlled. A/P: 1) POD#3 s/p 1*C/S - doing well. Plan to d/c home.
[2020-01-17 08:22] VITALS: BP 93/54; TEMP 98.4
[2020-01-17] MEDS: Prenatal Vitamin 1 TAB PO SCH (08:49)
[2020-01-17] MEDS: Docusate Calcium (SURFAK) 240 MG CAP PO SCH (08:49)
[2020-01-17] MEDS: HYDROcodone/Acetaminophen 5/325 mg Tablet PO PRN (09:32)
== END 2020-01-17 13:07 | disposition home or self-care (01) | DRG 788 ==
LOC: L&D 01-14 17:57 → 3SW 01-15 02:30
PROVIDERS: ADMIT Student in an Organized Health Care Education/Training Program; ATTEND Student in an Organized Health Care Education/Training Program
PROC: 10D00Z1 Extraction of Products of Conception, Low, Open Approach (ICD-10-PCS; principal; 2020-01-14)
DX: O24.424 Gestational diabetes mellitus in childbirth, insulin controlled (principal); Z3A.39 39 weeks gestation of pregnancy; Z37.0 Single live birth; O76 Abnormality in fetal heart rate and rhythm complicating labor and delivery; O36.5130 Maternal care for known or suspected placental insufficiency, third trimester, not applicable or unspecified; O99.214 Obesity complicating childbirth; E66.9 Obesity, unspecified
CPT/HCPCS: 36415; 36416; 51702; 80053; 82805; 85027; 86780; 86850; 86900; 86901; 87340; J0690; J1885; J2250; J2274; J2405; J2590; J3010

== ENCOUNTER 2020-09-15 08:06 | Outpatient (CLI) | payer OTHER ==
--- NOTE | 2020-09-15 08:40 | ULT ---
GALLBLADDER ULTRASOUND: HISTORY: Right upper and lower quadrant and epigastric abdominal pain FINDINGS: The liver demonstrates homogeneous echotexture without focal mass or intrahepatic biliary ductal dila tation. No gallstones, gallbladder wall thickening or pericholecystic fluid are seen. The right kidney and visualized portions of the pancreas are normal. The common duct [id number] in diameter. No free fluid is seen in the Swan's pouch. IMPRESSION: Normal exam.
== END 2020-09-15 08:07 | disposition home or self-care (01) ==
LOC: BICULT 08:06
PROVIDERS: ATTEND Family Medicine
DX: R10.31 Right lower quadrant pain (principal)
CPT/HCPCS: 76705

== ENCOUNTER 2020-09-25 14:59 | Outpatient (CLI) | payer OTHER ==
[~2020-09-25 14:59] MED LIST: Iopamidol 370 76% 100 ML VIAL ONE
--- NOTE | 2020-09-25 15:36 | CT ---
CT OF THE ABDOMEN AND PELVIS WITH IV CONTRAST INDICATION: History of abdominal pain; 8 months ago; rather quadrant abdominal pain with na usea COMPARISON: Prior CT abdomen pelvis dated May 31, 2016 FINDINGS: ABDOMEN: Lung bases: Clear Liver: Area of nodular hypodensity involving the liver adjacent to the falciform ligament suspicious for focal fatty infiltration is stable. Gallbladder: Mildly contracted Pancreas: Normal. Adrenal glands: Normal. Spleen: Normal. Kidneys and ureters: Normal. No hydronephrosis. Vasculature: Normal. Lymph nodes:No lymphadenopathy. Free fluid in abdomen:No free fluid is evident. PELVIS: Small and large bowel: Normal Appendix:Not definitely seen. No definite secondary evidence for appendicitis is present. Bladder: Partially decompressed Rectal and perirectal soft tissues:Normal. Reproductive structures: Normal. Free fluid in pelvis: No free fluid is evident. Lymphadenopathy pelvis: No lymphadenopathy is evident. Osseous structures: No acute osseous abnormality. No destructive osteolytic or osteoblastic lesion i s identified. Soft tissues:Normal. IMPRESSION: 1. No acute abnormality.
== END 2020-09-25 15:00 | disposition home or self-care (01) ==
LOC: BICCT 14:59
PROVIDERS: ATTEND Family Medicine
DX: R10.13 Epigastric pain (principal)
CPT/HCPCS: 74177; Q9967

== ENCOUNTER 2021-09-30 11:14 | Emergency (ER) | payer OTHER ==
[2021-09-30 11:58] LABS: #Basophils 0.1 thou/uL (0.0-0.2); #Lymphocytes 2.3 thou/uL (1.20-3.40); #Monocytes 0.5 thou/uL (0.11-0.59); %Basophils 0.7 % (0.0-1.0); %Eosinophils 0.4 % (0.0-10.0); %Lymphocytes 29.6 % (21.0-51.0); %Monocytes 6.7 % (0.0-10.0); %Neutrophils 62.7 % (42.0-75.0); Hemoglobin 15.3 g/dL (12.0-16.0); Mean Corpuscular HGB CONC 33.2 g/dL (32.0-36.0); Mean Corpuscular Hemoglobin 31.3 pg (27.0-31.0); Mean Corpuscular Volume 94.3 fL (78.0-98.0); Mean Platelet Volume 6.8 fL (7.4-10.4); Platelet Count 352 thou/uL (130-400); White Blood Cell (WBC) Count 7.9 thou/uL (4.8-10.8)
[2021-09-30 12:11] LABS: ALT (SGPT) 19 U/L (8-55); AST (SGOT) 14 U/L (5-34); Albumin 4.2 g/dL (3.5-5.0); Alkaline Phosphatase 66 U/L (40-110); Anion Gap 13 mmol/L (10-20); BUN (Urea Nitrogen) 13 mg/dL (7.0-18.7); Bilirubin, Total 0.5 mg/dL (0.2-1.2); Calc. Creatinine Clearance 0 mL/min (70-130); Calcium 9.6 mg/dL (7.8-10.44); Carbon Dioxide 22 mmol/L (22-29); Chloride 108 mmol/L (98-107); Globulin 3.2 g/dL (2.4-3.5); Glucose 92 mg/dL (70-105); Potassium 4.3 mmol/L (3.5-5.1); Protein, Total 7.4 g/dL (6.0-8.3); Sodium 139 mmol/L (136-145)
[2021-09-30 12:13] LABS: BHCG - Serum Negative (NEGATIVE); Pregs Control Background? CLEAR/WHITE (CLR/WHITE); Pregs Control Bar Appear? YES (CONTROL BAR)
[2021-09-30] MEDS ORDERED: Lidocaine Viscous Sol 2% 15 ml UD Cup ONE (13:49)
[2021-09-30] MEDS ORDERED: Mag-Al 1200 mg/1200 mg/30 ML UDCUP ONE (13:49)
[2021-09-30 14:14] LABS: Bacteria/HPF None Seen HPF (None Seen); Bilirubin Negative (Negative); Blood, Urine Trace (Negative); Clarity Clear (Clear); Glucose, Urine (Dipstick) Normal (Negative); Ketone, Urine Negative (Negative); Leukocyte 25 Leu/uL (Negative); Nitrite Negative (Negative); Protein, Urine (Dipstick) Negative (Neg-Trace); RBC/HPF 0-3 HPF (0-3); Specific Gravity, Urine 1.019 (1.002-1.036); Urobilinogen Normal mg/dL (Less than 2); WBC/HPF 0-3 HPF (0-3)
== END 2021-09-30 15:28 | disposition home or self-care (01) ==
LOC: ERS 11:14
DX: R10.11 Right upper quadrant pain (principal)
CPT/HCPCS: 36415; 76705; 80053; 81003; 81015; 83605; 83690; 84703; 85025; 87086; 94760

== ENCOUNTER 2021-12-04 08:28 | Outpatient (CLI) | payer OTHER | END 2021-12-04 08:29 | disposition home or self-care (01) | LOC: BICULT 08:28 | PROVIDERS: ATTEND Family Medicine | DX: R10.31 Right lower quadrant pain (principal); N83.202 Unspecified ovarian cyst, left side | CPT/HCPCS: 76856; 93976 ==

== ENCOUNTER 2022-02-03 08:35 | Outpatient (CLI) | payer OTHER | END 2022-02-03 08:36 | disposition home or self-care (01) | LOC: BICCT 08:35 | PROVIDERS: ATTEND Otolaryngology | DX: H90.12 Conductive hearing loss, unilateral, left ear, with unrestricted hearing on the contralateral side (principal) | CPT/HCPCS: 70480 ==

== ENCOUNTER 2023-01-11 15:44 | Outpatient (CLI) | payer OTHER, BC | END 2023-01-11 15:45 | disposition home or self-care (01) | LOC: RAD 15:44 | PROVIDERS: ATTEND General Practice | DX: M67.911 Unspecified disorder of synovium and tendon, right shoulder (principal); M67.912 Unspecified disorder of synovium and tendon, left shoulder; M25.811 Other specified joint disorders, right shoulder ==

== ENCOUNTER 2024-11-21 14:41 | Outpatient (CLI) | payer BC | END 2024-11-21 14:42 | disposition home or self-care (01) | LOC: BICMAMMO 14:41 | PROVIDERS: ATTEND Nurse Practitioner Family | DX: Z12.31 Encounter for screening mammogram for malignant neoplasm of breast (principal); Z80.3 Family history of malignant neoplasm of breast | CPT/HCPCS: 77063; 77067 ==